=== PATIENT | female | born 1990 ===

== ENCOUNTER 2018-05-02 23:59 | Emergency (ER) | payer MEDICAID ==
[2018-05-03 00:03] VITALS: BMI 18.8
[2018-05-03 00:05] VITALS: RESP 19; TEMP 98.7; O2SAT 97
[2018-05-03] MEDS ORDERED: POLYETHYLENE GLYCOL 3350 17 GM/Dose PACKET PO STA (00:45)
--- NOTE | 2018-05-03 00:50 | ED PDOC ---
HPI: Abdomen Chief Complaint (Provider): Lower abdominal pain History Per: Patient History/Exam Limitations: no limitations Onset/Duration Of Symptoms: Days Outside of [place] travel?: No Current Symptoms Are (Timing): Still Present Location Of Pain/Discomfort: Suprapubic, Other (Lower abdominal pain. ) Quality Of Discomfort: Other ("sensitive") Associated Symptoms: Constipation. denies: Fever, Chills, Nausea, Vomiting, Diarrhea, Chest Pain, Urinary Symptoms Last Bowel Movement: Days Ago (Reported Thursday04/30/18 - described as hard, small vamshi.) Additional History Per: Patient Abnormal Vaginal Bleeding: No Last Menstral Period: February 2018 (patient unable to recall) : 2 Para: 1 Miscarriage: 1 <Yesica Lopez - Last Filed: 05/04/18 16:42> <Kvng Mascorro - Last Filed: 05/04/18 23:38> Time Seen by Provider: 05/03/18 00:33 Chief Complaint (Nursing): GI Problem Additional Complaint(s): 27 yo f without pertinent medical history presents to E.D with abdominal pain. She states it began yesterday afternoon and states it is located in the lower abdomen and describes the pain as more of a "sensitive area" rating the intensity as a 0/10. She states her last BM was yesterday and it was hard and was only a few small vamshi. Patient reports that when she wiped, she noted spots of bright red blood on the toilet paper. She states that she visited the E.D a few weeks ago for the same complaint and was prescribed Miralax which helped her feel better. She has not taken Miralax since then because she reports she has not had time to take it and felt better coming into the E.D. today to seek treatment. Denies fever, nausea, vomiting, diarrhea, back pain, dysuria, frequency, and urgency. PCP: Dr. Carmelita Turk ([facility]) (Yesica Lopez) Supervising Attending Note <Yesica Lopez - Last Filed: 05/04/18 16:42> - Supervising Attending Note The Documented history was done by the: Physician Pulmonary Function Technologist The documented physical exam was done by the: Physician Pulmonary Function Technologist - Attestation: I have personally seen and examined this patient.: Yes I have fully participated in the care of the patient.: Yes I have reviewed all pertinent clinical information: Yes <Kvng Mascorro - Last Filed: 05/04/18 23:38> - Notes: Notes:: 27 yo female with known constipation by history, c/o same Patient evaluated by supervising attending MD CHEEMA, afebrile Abdomen soft NT, ND with NBS Patient agreeable to taking Miralax and requests discharge home without having BM prior to discharge Case d/w resident MD Dr Iglesias in full Dx Constipation Stable on discharge (Kvng Mascorro) Past Medical History - Medical History PMH: No Chronic Diseases Denies: Kidney Stones - Surgical History Surgical History: (2008 because of nuchal cord. ) - Family History Family History: States: Unknown Family Hx, Diabetes (Grandmother ) - Social History Current smoker - smoking cessation education provided: No Alcohol: None Drugs: Denies - Immunization History Hx Tetanus Toxoid Vaccination: No Hx Influenza Vaccination: Yes (05/2015) Hx Pneumococcal Vaccination: No <Yesica Lopez - Last Filed: 05/04/18 16:42> <Kvng Mascorro - Last Filed: 05/04/18 23:38> Vital Signs: Last Vital Signs Temp 98.7 F 05/03/18 00:16 Pulse 70 05/03/18 01:34 Resp 19 05/03/18 00:04 BP 104/70 05/03/18 01:34 Pulse Ox 97 05/04/18 16:42 - Home Medications Home Medications: Ambulatory Orders Medication Instructions Recorded Ciprofloxacin [Cipro] 500 mg PO BID #14 tab 03/13/17 Cyclobenzaprine HCl 10 mg PO HS PRN 03/13/17 Naproxen [Naprosyn] 500 mg PO BID PRN 03/13/17 Polyethylene Glycol 3350 [Miralax] 17 g PO QAM PRN #7 pkg 05/03/18 - Allergies Allergies/Adverse Reactions: Allergies Allergy/AdvReac Type Severity Reaction Status Date / Time Penicillins Allergy RASH Verified 04/08/18 23:33 shellfish derived Allergy ANAPHYLAXIS Verified 04/08/18 23:33 Review of Systems ROS Statement: Except As Marked, All Systems Reviewed And Found Negative <Yesica Lopez - Last Filed: 05/04/18 16:42> Physical Exam - Reviewed Vital Signs Reviewed: Yes - Physical Exam Appears: Positive for: Well, Non-toxic, No Acute Distress Head Exam: Positive for: NORMAL INSPECTION Skin: Positive for: Normal Color, Warm, Dry Eye Exam: Positive for: Normal appearance Cardiovascular/Chest: Positive for: Regular Rate, Rhythm. Negative for: Gallop , Murmur, Friction Rub Respiratory: Positive for: Normal Breath Sounds. Negative for: Crackles, Rales , Rhonchi, Stridor, Wheezing Gastrointestinal/Abdominal: Positive for: Normal Exam, Bowel Sounds ( Normoactive bowel sounds), Soft. Negative for: Tenderness, Organomegaly, Distended, Guarding, Rebound Back: Negative for: L CVA Tenderness, R CVA Tenderness Neurologic/Psych: Positive for: Alert, Oriented <Yesica Lopez - Last Filed: 05/04/18 16:42> - ECG O2 Sat by Pulse Oximetry: 97 <Yesica Lopez - Last Filed: 05/04/18 16:42> <Kvng Mascorro - Last Filed: 05/04/18 23:38> - Progress ED Course And Treament: 1:00 Lower abdominal pain: - Urinary test ordered - Urinalysis 1:28 Lower abdominal pain: - Miralax was given. - Abdominal exam remains unchanged. - Patient reports she feels comfortable going home as she has received first dose of miralax and is confident she will have a bowel movement at home. - Prescription of Miralax given to the patient. (Yescia Lopez) Disposition - Disposition Disposition Time: 01:05 <Yesica Lopez - Last Filed: 05/04/18 16:42> <Kvng Mascorro - Last Filed: 05/04/18 23:38> - Clinical Impression Clinical Impression: Constipation - Disposition Condition: STABLE Prescriptions: Polyethylene Glycol 3350 [Miralax] 17 g PO QAM PRN #7 pkg PRN Reason: Constipation Instructions: Constipation in Adults Forms: [employer] ([place])
[2018-05-03 01:40] VITALS: BP 104/70; PULSE 70
[2018-05-03 01:48] LABS: SQUAMOUS EPITHIAL 24 /hpf (0-5); URINE BACTERIA RARE (<OCC); URINE BILIRUBIN NEGATIVE (NEGATIVE); URINE BLOOD NEGATIVE (NEGATIVE); URINE CLARITY CLOUDY (Clear); URINE COLOR YELLOW (YELLOW); URINE GLUCOSE (UA) NEG (Normal); URINE LEUKOCYTE ESTERASE TRACE Leu/uL (Negative); URINE PROTEIN 30 mg/dL (NEGATIVE)
== END 2018-05-03 01:35 | disposition home or self-care (01) ==
LOC: MERGE 23:59 → H.ER 23:59
DX: K59.00 Constipation, unspecified (principal)

== ENCOUNTER 2018-06-04 13:10 | Emergency (ER) | payer MEDICAID ==
[2018-06-04 13:10] VITALS: BMI 18.8
[2018-06-04 13:15] VITALS: BP 95/67; PULSE 75; RESP 18; TEMP 98.1; O2SAT 99
[2018-06-04] MEDS ORDERED: Metoclopramide 10 mg/10 ml Cup PO STA (13:42)
--- NOTE | 2018-06-04 14:03 | ED PDOC ---
HPI: Headache Time Seen by Provider: 06/04/18 13:18 Chief Complaint (Nursing): Headache Chief Complaint (Provider): Headache History Per: Patient History/Exam Limitations: no limitations Onset/Duration Of Symptoms: Other (x6 months) Current Symptoms Are (Timing): Still Present Additional Complaint(s): 27-year-old female presenting for evaluation of headache x6 months. Patient states she's had an intermittent headache for the past 6 months, worse today. PT reports dull throbbing on the left side. PT states she has had similar in the past but the last 6 months they have increased in frequency. Pt took Excedrin last night which helped the pain. Pt states she woke up again with headache. Past Medical History Reviewed: Historical Data, Nursing Documentation, Vital Signs Vital Signs: Last Vital Signs Temp 98.1 F 06/04/18 13:13 Pulse 75 06/04/18 13:13 Resp 18 06/04/18 13:13 BP 95/67 L 06/04/18 13:13 Pulse Ox 99 06/04/18 13:13 - Medical History PMH: No Chronic Diseases Denies: Kidney Stones, Chronic Kidney Disease - Surgical History Surgical History: (2009 because of nuchal cord. ) - Family History Family History: States: Unknown Family Hx, Diabetes (Grandmother ) - Immunization History Hx Tetanus Toxoid Vaccination: No Hx Influenza Vaccination: Yes (05/2015) Hx Pneumococcal Vaccination: No - Home Medications Home Medications: Ambulatory Orders Medication Instructions Recorded Ciprofloxacin [Cipro] 500 mg PO BID #14 tab 03/13/17 Cyclobenzaprine HCl 10 mg PO HS PRN 03/13/17 Naproxen [Naprosyn] 500 mg PO BID PRN 03/13/17 Polyethylene Glycol 3350 [Miralax] 17 g PO QAM PRN #7 pkg 05/03/18 - Allergies Allergies/Adverse Reactions: Allergies Allergy/AdvReac Type Severity Reaction Status Date / Time Penicillins Allergy RASH Verified 04/08/18 23:33 shellfish derived Allergy ANAPHYLAXIS Verified 04/08/18 23:33 Review of Systems ROS Statement: Except As Marked, All Systems Reviewed And Found Negative Neurological: Positive for: Headache Physical Exam - Reviewed Nursing Documentation Reviewed: Yes Vital Signs Reviewed: Yes - Physical Exam Appears: Positive for: Non-toxic, No Acute Distress Head Exam: Positive for: ATRAUMATIC Skin: Positive for: Normal Color, Warm Eye Exam: Positive for: Normal appearance, EOMI, PERRL ENT: Negative for: Normal ENT Inspection Neck: Positive for: Normal Cardiovascular/Chest: Negative for: Bradycardia, Tachycardia Respiratory: Negative for: Accessory Muscle Use, Respiratory Distress Neurologic/Psych: Positive for: Alert, office services clerk II-XII, Oriented, Mood/Affect, Cerebellar Tests, Gait. Negative for: Motor/Sensory Deficits, Aphasia, Facial Droop - ECG O2 Sat by Pulse Oximetry: 99 (RA) Pulse Ox Interpretation: Normal Medical Decision Making Medical Decision Making: Plan: Positive . CT cancelled and patient given Tylenol and Reglan. Discussed follow up with patient. Scribe Attestation: Documented by Zion Fall, acting as a scribe for Lilia Thompson PA-C. Provider Scribe Attestation: All medical record entries made by the scribe were at my direction and personally dictated by me. I have reviewed the chart and agree that the record accurately reflects my personal performance of the history, physical exam, medical decision making, and the department course for this patient. I have also personally directed, reviewed, and agree with the discharge instructions and disposition. Disposition - Clinical Impression Clinical Impression: Headache - Patient ED Disposition Is Patient to be Admitted: No Counseled Patient/Family Regarding: Diagnosis, Need For Followup - Disposition Referrals: Nathan Rachel MD [Staff Provider] - Disposition: Routine/Home Disposition Time: 14:19 Condition: GOOD Additional Instructions: Please begin vitamins. Tylenol only for headache. Follow-up with neurologist. Instructions: Migraine Headache (DC) Forms: [email or web address] ([place] Citizen)
== END 2018-06-04 14:22 | disposition home or self-care (01) ==
LOC: H.ER 13:10
DX: R51 Headache (principal); Z88.0 Allergy status to penicillin

== ENCOUNTER 2018-06-06 22:31 | Emergency (ER) | payer MEDICAID ==
[2018-06-06 22:31] VITALS: BMI 18.8
[2018-06-06 22:57] VITALS: O2SAT 100
--- NOTE | 2018-06-06 23:47 | ED PDOC ---
HPI: Abdomen Chief Complaint (Provider): Abdominal and Chest pain History Per: Patient History/Exam Limitations: no limitations Onset/Duration Of Symptoms: Hrs Current Symptoms Are (Timing): Intermittent Episodes Pain Scale Rating Of: 2 Location Of Pain/Discomfort: LLQ Quality Of Discomfort: Other (Vibration) Associated Symptoms: Chest Pain. denies: Nausea, Vomiting Abnormal Vaginal Bleeding: No Last Menstral Period: 05/05/2018 : 4 Para: 1 Miscarriage: 2 <Obed Smith - Last Filed: 06/07/18 03:05> <Jose G Otero - Last Filed: 06/07/18 05:27> Chief Complaint (Nursing): Abdominal Pain Additional Complaint(s): 27 yo F with pmhx of asthma and anemia presents to the ED with LLQ abdominal and chest pain. She reports that this AM at 11:00, approximately 12 hours prior, she was resting when suddenly she experienced a "vibrational" like pain at LLQ lasting 1-2 seconds, which returned at 14:00 and 20:00. She denies recent trauma. She reports being diagnosed with at her recent visit on 06/04/2018 with generalized abdominal pain. She denies vaginal bleed or discomfort, dysuria. Denies history of STI or ectopic pregnancies. History of 2 miscarriages. Denies N/V/D/SOB. She reported chest pain while preregistering for ED. Pain is L sternal, sharp, 3 /10 lasting a second. Aggravated with deep inspiration. She reports history of similar chest pain but said she never told her PMD. LMP: 05/05/2018; regular cycles; no history of ectopic PMD: Dr. Stewart at [facility] PMHX: Asthma, Anemia (both not on meds) surg: c/s 2008 famhx: Cancer: breast, brain, lung, colon; Diabetes Soc: denies smoking, alcohol, illicit drugs; Denies history of STI Allergies: penicillin: hives and shellfish (Obed Smith) Supervising Attending Note - Supervising Attending Note The Documented history was done by the: Physician Share Holder, Attending Physician The documented physical exam was done by the: Physician Share Holder, Attending Physician The documented procedures were done by the: Physician Share Holder, Attending Physician - Attestation: I have personally seen and examined this patient.: Yes I have fully participated in the care of the patient.: Yes I have reviewed all pertinent clinical information: Yes <BrandenJose G - Last Filed: 06/07/18 05:27> Past Medical History - Medical History PMH: Anemia, Asthma Denies: Kidney Stones, Chronic Kidney Disease - Surgical History Surgical History: (2009 because of nuchal cord. ) - Family History Family History: States: Unknown Family Hx, Diabetes (Grandmother ) - Living Arrangements Living Arrangements: Alone - Social History Current smoker - smoking cessation education provided: No Alcohol: None Drugs: Denies - Immunization History Hx Tetanus Toxoid Vaccination: No Hx Influenza Vaccination: Yes (05/2015) Hx Pneumococcal Vaccination: No <Obed Smith - Last Filed: 06/07/18 03:05> Reviewed: Historical Data, Nursing Documentation, Vital Signs <PascualpauletteKuldeepvilma Geeta - Last Filed: 06/07/18 05:27> Vital Signs: Last Vital Signs Temp 98.7 F 06/07/18 03:23 Pulse 68 06/07/18 03:23 Resp 18 06/07/18 03:23 BP 93/64 L 06/07/18 03:23 Pulse Ox 100 06/07/18 03:23 - Home Medications Home Medications: Ambulatory Orders Medication Instructions Recorded Ciprofloxacin [Cipro] 500 mg PO BID #14 tab 03/13/17 Cyclobenzaprine HCl 10 mg PO HS PRN 03/13/17 Naproxen [Naprosyn] 500 mg PO BID PRN 03/13/17 Polyethylene Glycol 3350 [Miralax] 17 g PO QAM PRN #7 pkg 05/03/18 - Allergies Allergies/Adverse Reactions: Allergies Allergy/AdvReac Type Severity Reaction Status Date / Time Penicillins Allergy RASH Verified 04/08/18 23:33 shellfish derived Allergy ANAPHYLAXIS Verified 04/08/18 23:33 Review of Systems Constitutional: Negative for: Fever, Sweats Cardiovascular: Positive for: Chest Pain (Intermittent substernal lasting 1 second; worse with inspiration) Respiratory: Negative for: Cough, Shortness of Breath Gastrointestinal: Positive for: Abdominal Pain (LLQ). Negative for: Nausea, Vomiting Genitourinary Female: Negative for: Dysuria, Frequency, Vaginal Discharge, Vaginal Bleeding, Pelvic Pain <Obed Smith - Last Filed: 06/07/18 03:05> ROS Statement: Except As Marked, All Systems Reviewed And Found Negative <BrandenMinoomilton Geeta Last Filed: 06/07/18 05:27> Physical Exam - Reviewed Vital Signs Reviewed: Yes - Physical Exam Appears: Positive for: Well, Non-toxic, No Acute Distress Head Exam: Positive for: ATRAUMATIC Skin: Positive for: Normal Color, Warm, Dry Eye Exam: Positive for: EOMI Neck: Positive for: Painless ROM Cardiovascular/Chest: Positive for: Regular Rate, Rhythm, Other (L sternal tenderness upon palpation ). Negative for: Murmur Respiratory: Positive for: Normal Breath Sounds. Negative for: Wheezing Gastrointestinal/Abdominal: Positive for: Bowel Sounds, Tenderness (L lower quadrant with deep palpation). Negative for: Distended, Guarding, Rebound, Asicites Neurologic/Psych: Positive for: Alert, nurse anesthetist II-XII, Oriented Front/Back of Body: 1 - Tenderness; vibrational pain <Obed Smith Last Filed: 06/07/18 03:05> - ECG O2 Sat by Pulse Oximetry: 100 - CT Scan/US TRANSVAGINAL Other Rad Studies (CT/US): Read By Radiologist, Radiology Report Reviewed <Obed Smith Last Filed: 06/07/18 03:05> <Jose G Otero Last Filed: 06/07/18 05:27> - Progress ED Course And Treament: 27 yo F with pmhx of asthma and anemia presents with LLQ and chest pain Chest Pain -EKG -Troponin LLQ pain -Urine : if positive: quantitative bhcg and LLQ abdominal ultrasound -UA 01:02 EKG, Troponin, UA, bhcg reviewed Pending Abdo ultrasound to r/o ectopic 03:06 TV US reviewed: 1) no viable intrauterine 2)no visible ectopic 3) there is a simple cyst of the L ovary measuring a maximum of 3.1 cm Discussed with patient options for: early IUP, early ectopic, or missed/ complete Pt instructed to f/u with PMD or ER in 3 days to f/u BHCG levels; continue vitamins and seek OB care. ER precautions reviewed: abdo pain, vaginal bleed, vomiting, fever, trauma. Case dw Dr. Branden Smith MD PGY2 (Obed Smith) Disposition - Patient ED Disposition Is Patient to be Admitted: No - Disposition Disposition: Routine/Home Disposition Time: 03:09 <Obed Smith - Last Filed: 06/07/18 03:05> Counseled Patient/Family Regarding: Studies Performed, Diagnosis, Need For Followup <Jose G Otero - Last Filed: 06/07/18 05:27> - Clinical Impression Clinical Impression: Threatened , Abdominal pain in female - Disposition Referrals: Carmelita Marrufo APN [Primary Care Provider] - Condition: GOOD Additional Instructions: Discussed with patient options for: early IUP, early ectopic, or missed/ complete Pt instructed to f/u with PMD or ER in 3 days to f/u BHCG levels; continue vitamins and seek OB care. ER precautions reviewed: abdo pain, vaginal bleed, vomiting, fever, trauma. Instructions: Threatened Miscarriage (DC)
[2018-06-07 00:53] LABS: SQUAMOUS EPITHIAL 15 /hpf (0-5); URINE BILIRUBIN NEGATIVE (NEGATIVE); URINE BLOOD NEGATIVE (NEGATIVE); URINE CLARITY CLOUDY (Clear); URINE COLOR YELLOW (YELLOW); URINE GLUCOSE (UA) NEG (Normal); URINE LEUKOCYTE ESTERASE NEG Leu/uL (Negative); URINE PROTEIN NEGATIVE (NEGATIVE); URINE UROBILINOGEN 0.2-1.0 mg/dL (0.2-1.0)
[2018-06-07 03:26] VITALS: BP 93/64; PULSE 68; RESP 18; TEMP 98.7
--- NOTE | 2018-06-07 08:23 | CARD ---
APPROVED REPORT Date of service: 06/07/2018 EKG Measurement Heart [id number] <Conclusion> Normal sinus rhythm Normal ECG
--- NOTE | 2018-06-07 14:52 | US ---
Date of service: 06/07/2018 PROCEDURE: OB Pelvic Ultrasound HISTORY: LLQ abdominal pain LMP: 05/05/2018 suggesting estimated gestational age of 4 weeks 5 days. COMPARISON: None available. FINDINGS: UTERUS: Gestational sac: None identified. Endometrium measures 14.0 mm and appears homogeneous in echotexture throughout. No definite myometrial lesion is appreciated with homogeneous echotexture appreciated throughout. The cervix measures 3.2 cm with a closed internal os. Uterus measures 6.9 x 4.0 x 5.3 cm. Normal in size and appearance, anteverted. CERVIX: As above. RIGHT OVARY: Measures 2.1 x 1.4 x 2.0 cm. No mass lesion. Normal flow. LEFT OVARY: Measures 3.8 x 1.2 x 4.1 cm. No solid mass. Normal flow. 3.1 x 2.1 x 2.9 cm anechoic cyst is identified at the left ovary. No yolk sac or pole is identified internally nor amniotic membrane. It may represent a dominant follicle although corpus luteum cyst is not completely excluded. FREE FLUID: None. OTHER FINDINGS: None. IMPRESSION: 1. No intrauterine gestation is identified at this time and there may be a nonvisualized early intrauterine given prior LMP suggesting 4 week 5 day EGA. An ectopic gestation is not identified but is not completely excluded nevertheless. Further clinical correlation and sonographic follow-up is advised. At the time of imaging, beta HCG analysis was not available. 2. 3.1 cm anechoic cyst left ovary potentially reflecting corpus luteum cyst, follicular cyst or other benign entity. No pole is identified or yolk sac to suggest ectopic gestation although ectopic gestation not excluded. Additional differential diagnosis which consists of failure of gestation. Concordant preliminary report from [facility], 06/07/2018.
== END 2018-06-07 03:30 | disposition home or self-care (01) ==
LOC: H.ER 22:31
DX: O20.0 Threatened abortion (principal); R10.2 Pelvic and perineal pain; E11.9 Type 2 diabetes mellitus without complications; J45.909 Unspecified asthma, uncomplicated; Z85.3 Personal history of malignant neoplasm of breast; Z88.0 Allergy status to penicillin

== ENCOUNTER 2018-06-09 13:07 | Emergency (ER) | payer MEDICAID ==
[2018-06-09 13:08] VITALS: BMI 18.8
[2018-06-09 13:24] VITALS: BP 99/62; PULSE 74; RESP 20; TEMP 98; O2SAT 99
--- NOTE | 2018-06-09 14:42 | ED PDOC ---
HPI: Abdomen Time Seen by Provider: 06/09/18 13:31 Chief Complaint (Nursing): Abdominal Pain Chief Complaint (Provider): Abdominal Pain and Follow-Up History Per: Patient History/Exam Limitations: no limitations Onset/Duration Of Symptoms: Days Current Symptoms Are (Timing): Still Present Location Of Pain/Discomfort: Suprapubic Quality Of Discomfort: "Pain" Associated Symptoms: denies: Fever Additional Complaint(s): 27 year old female presents to the ED for a follow-up visit regarding her . Patient was seen in the ED 2 days ago for abdominal pain and early . She had an US done that showed no IUP and was told to return to the ED for a follow-up. Her last normal menstrual period was in mid-April and patient is 3-4 weeks . Patient is complaining of suprapubic abdominal pain now. She was scheduled to visit the management developer but patient states, she did not go because they do not take her insurance. Patient denies fever, vaginal bleeding or any other complaints. Of note: Patient is G3, P1, A1 PMD: [place] Abnormal Vaginal Bleeding: No Last Menstral Period: mid April : 3 Para: 1 Past Medical History Reviewed: Historical Data, Nursing Documentation, Vital Signs Vital Signs: Last Vital Signs Temp 98.0 F 06/09/18 13:18 Pulse 74 06/09/18 13:18 Resp 20 06/09/18 13:18 BP 99/62 L 06/09/18 13:18 Pulse Ox 99 06/09/18 17:00 - Medical History PMH: Anemia, Asthma Denies: Kidney Stones, Chronic Kidney Disease - Surgical History Surgical History: (2008 because of nuchal cord. ) - Family History Family History: States: Unknown Family Hx, Diabetes (Grandmother ) - Social History Current smoker - smoking cessation education provided: No Alcohol: None Drugs: Denies - Immunization History Hx Tetanus Toxoid Vaccination: No Hx Influenza Vaccination: Yes (05/2015) Hx Pneumococcal Vaccination: No - Home Medications Home Medications: Ambulatory Orders Medication Instructions Recorded Ciprofloxacin [Cipro] 500 mg PO BID #14 tab 03/13/17 Cyclobenzaprine HCl 10 mg PO HS PRN 03/13/17 Naproxen [Naprosyn] 500 mg PO BID PRN 03/13/17 Polyethylene Glycol 3350 [Miralax] 17 g PO QAM PRN #7 pkg 05/03/18 - Allergies Allergies/Adverse Reactions: Allergies Allergy/AdvReac Type Severity Reaction Status Date / Time Penicillins Allergy RASH Verified 06/09/18 13:17 shellfish derived Allergy ANAPHYLAXIS Verified 06/09/18 13:17 Review of Systems ROS Statement: Except As Marked, All Systems Reviewed And Found Negative Constitutional: Negative for: Fever Gastrointestinal: Positive for: Abdominal Pain. Negative for: Nausea, Vomiting , Diarrhea Genitourinary Female: Negative for: Dysuria, Frequency, Incontinence, Vaginal Discharge, Vaginal Bleeding Psych: Negative for: Suicidal ideation (homicidal ideation) Physical Exam - Reviewed Nursing Documentation Reviewed: Yes Vital Signs Reviewed: Yes - Physical Exam Appears: Positive for: Well, Non-toxic, No Acute Distress Head Exam: Positive for: ATRAUMATIC, NORMAL INSPECTION, NORMOCEPHALIC Skin: Positive for: Normal Color, Warm, Dry Eye Exam: Positive for: EOMI, Normal appearance, PERRL ENT: Positive for: Normal ENT Inspection Neck: Positive for: Normal, Painless ROM, Supple. Negative for: Decreased ROM Cardiovascular/Chest: Positive for: Regular Rate, Rhythm. Negative for: Murmur Respiratory: Positive for: Normal Breath Sounds. Negative for: Decreased Breath Sounds, Wheezing, Respiratory Distress Gastrointestinal/Abdominal: Positive for: Normal Exam, Bowel Sounds, Soft. Negative for: Tenderness, Guarding, Rebound Back: Positive for: Normal Inspection. Negative for: L CVA Tenderness, R CVA Tenderness Extremity: Positive for: Normal ROM. Negative for: Tenderness, Pedal Edema, Deformity Neurologic/Psych: Positive for: Alert, Oriented (x3). Negative for: Motor/ Sensory Deficits - ECG O2 Sat by Pulse Oximetry: 99 (RA) Pulse Ox Interpretation: Normal Medical Decision Making Medical Decision Making: Time: 1415 Initial Impression: abdominal pain and Differential Diagnosis includes but is not limited to: ectopic , early gestation and miscarriage Initial Plan: -- Serum [Beta-HCG, Quantitative] --Reevaluation Time: 1451 Date of service: 06/07/2018 PROCEDURE: OB Pelvic Ultrasound HISTORY: LLQ abdominal pain LMP: 05/05/2018 suggesting estimated gestational age of 4 weeks 5 days. COMPARISON: None available. FINDINGS: UTERUS: Gestational sac: None identified. Endometrium measures 14.0 mm and appears homogeneous in echotexture throughout. No definite myometrial lesion is appreciated with homogeneous echotexture appreciated throughout. The cervix measures 3.2 cm with a closed internal os. Uterus measures 6.9 x 4.0 x 5.3 cm. Normal in size and appearance, anteverted. CERVIX: As above. RIGHT OVARY: Measures 2.1 x 1.4 x 2.0 cm. No mass lesion. Normal flow. LEFT OVARY: Measures 3.8 x 1.2 x 4.1 cm. No solid mass. Normal flow. 3.1 x 2.1 x 2.9 cm anechoic cyst is identified at the left ovary. No yolk sac or pole is identified internally nor amniotic membrane. It may represent a dominant follicle although corpus luteum cyst is not completely excluded. FREE FLUID: None. OTHER FINDINGS: None. IMPRESSION: 1. No intrauterine gestation is identified at this time and there may be a nonvisualized early intrauterine given prior LMP suggesting 4 week 5 day EGA. An ectopic gestation is not identified but is not completely excluded nevertheless. Further clinical correlation and sonographic follow-up is advised. At the time of imaging, beta HCG analysis was not available. 2. 3.1 cm anechoic cyst left ovary potentially reflecting corpus luteum cyst, follicular cyst or other benign entity. No pole is identified or yolk sac to suggest ectopic gestation although ectopic gestation not excluded. Additional differential diagnosis which consists of failure of gestation. Time: 1544 Date of service: 06/09/2018 HISTORY: lower abdominal pain preg COMPARISON: None available. TECHNIQUE: Transvaginal pelvic ultrasound was performed. FINDINGS: UTERUS: Measures 7.8 x 4.2 x 5.4 cm. Anteverted, normal in size and appearance. No fibroid or other mass lesion seen. ENDOMETRIUM: The central endometrial echo complex is taken. There is an apparent 2 mm anechoic structure in the superior endometrium. Yolk sac and pole are not identified. CERVIX: No cervical abnormality identified. RIGHT OVARY: Measures 2.6 x 1.4 x 2.3 cm. No solid mass. Normal flow. LEFT OVARY: Measures 3.7 x 2.5 x 3.5 cm. No solid mass. Normal flow. There is a 3.1 x 1.4 x 2.6 cm simple cyst. FREE FLUID: No significant free fluid noted. OTHER FINDINGS: None. IMPRESSION: Small anechoic structure in the endometrial cavity which may represent small gestational sac an early gestation. Yolk sac or pole are not identified. Clinical follow-up, correlation with serial beta HCG levels and ultrasound examination is recommended to assess viability. Scribe Attestation: Documented by Chris Limon, acting as a scribe for Jose G Otero MD Provider Scribe Attestation: All medical record entries made by the Scribe were at my direction and personally dictated by me. I have reviewed the chart and agree that the record accurately reflects my personal performance of the history, physical exam, medical decision making, and the department course for this patient. I have also personally directed, reviewed, and agree with the discharge instructions and disposition. Disposition - Clinical Impression Clinical Impression: Threatened - Patient ED Disposition Is Patient to be Admitted: No Doctor Will See Patient In The: Office Counseled Patient/Family Regarding: Studies Performed, Diagnosis, Need For Followup - Disposition Referrals: [facility] [Outside] Disposition: Routine/Home Disposition Time: 16:00 Condition: GOOD Additional Instructions: Return to ED for recheck in 2-3 days. Return immediately with worsening pain or vaginal bleeding. SHELLEY PRASAD, thank you for letting us take care of you today. Your provider was Jose G Otero MD and you were treated for ABD PAIN. The emergency medical care you received today was directed at your acute symptoms. If you were prescribed any medication, please fill it and take as directed. It may take several days for your symptoms to resolve. Return to the Emergency Department if your symptoms worsen, do not improve, or if you have any other problems. Please contact your doctor or call one of the physicians/clinics you have been referred to that are listed on the Patient Visit Information form that is included in your discharge packet. Bring any paperwork you were given at discharge with you along with any medications you are taking to your follow up visit. Our treatment cannot replace ongoing medical care by a primary care provider outside of the emergency department. Thank you for allowing the [facility] team to be part of your care today. If you had an X-Ray or CT scan: A Radiologist will review the ED reading if any change in treatment is needed we will contact you. If you had a blood, urine, or wound culture: It will take several days for the results, if any change in treatment is needed we will contact you. If you had an STI test: It will take 48 hours for the results. Please call after 1 week if you have not heard back. Instructions: Threatened Miscarriage
--- NOTE | 2018-06-09 15:47 | US ---
Date of service: 06/09/2018 HISTORY: lower abdominal pain preg COMPARISON: None available. TECHNIQUE: Transvaginal pelvic ultrasound was performed. FINDINGS: UTERUS: Measures 7.8 x 4.2 x 5.4 cm. Anteverted, normal in size and appearance. No fibroid or other mass lesion seen. ENDOMETRIUM: The central endometrial echo complex is taken. There is an apparent 2 mm anechoic structure in the superior endometrium. Yolk sac and pole are not identified. CERVIX: No cervical abnormality identified. RIGHT OVARY: Measures 2.6 x 1.4 x 2.3 cm. No solid mass. Normal flow. LEFT OVARY: Measures 3.7 x 2.5 x 3.5 cm. No solid mass. Normal flow. There is a 3.1 x 1.4 x 2.6 cm simple cyst. FREE FLUID: No significant free fluid noted. OTHER FINDINGS: None. IMPRESSION: Small anechoic structure in the endometrial cavity which may represent small gestational sac an early gestation. Yolk sac or pole are not identified. Clinical follow-up, correlation with serial beta HCG levels and ultrasound examination is recommended to assess viability.
== END 2018-06-09 18:45 | disposition home or self-care (01) ==
LOC: H.ER 13:07
DX: O26.91 Pregnancy related conditions, unspecified, first trimester (principal); R10.2 Pelvic and perineal pain; J45.909 Unspecified asthma, uncomplicated; O20.0 Threatened abortion; Z88.0 Allergy status to penicillin; Z3A.01 Less than 8 weeks gestation of pregnancy

== ENCOUNTER 2018-06-16 13:05 | Emergency (ER) | payer MEDICAID ==
[2018-06-16 13:05] VITALS: BMI 18.8
[2018-06-16 13:16] VITALS: BP 97/62; PULSE 78; RESP 18; TEMP 98.4; O2SAT 100
[2018-06-16] MEDS ORDERED: Sodium Chloride 0.9% 1,000 ML IV STA (13:36)
--- NOTE | 2018-06-16 13:38 | ED PDOC ---
Syncope/Near Syncope/Dizziness Time Seen by Provider: 06/16/18 13:36 Chief Complaint (Nursing): Dizziness/Lightheaded Chief Complaint (Provider): nausea/ weakness/lower abd pain History Per: Patient (27 y/o female here with nausea/weakness/lower abd pain ongoing here for f/u regarding betahcg/us pelvic. Patient was seen in ED 06/07 and 06/09 and noted to have ?intrauterine gestation and ?ovarian cyst with beta hcg 1999. Denies any vaginal bleeding.) Past Medical History Reviewed: Historical Data, Nursing Documentation, Vital Signs Vital Signs: Last Vital Signs Temp 98.4 F 06/16/18 13:13 Pulse 78 06/16/18 13:13 Resp 18 06/16/18 13:13 BP 97/62 L 06/16/18 13:13 Pulse Ox 100 06/16/18 13:13 - Medical History PMH: Anemia, Asthma Denies: Kidney Stones, Chronic Kidney Disease - Surgical History Surgical History: (2008 because of nuchal cord. ) - Family History Family History: States: Unknown Family Hx, Diabetes (Grandmother ) - Immunization History Hx Tetanus Toxoid Vaccination: No Hx Influenza Vaccination: Yes (05/2015) Hx Pneumococcal Vaccination: No - Home Medications Home Medications: Ambulatory Orders Medication Instructions Recorded Ciprofloxacin [Cipro] 500 mg PO BID #14 tab 03/13/17 Cyclobenzaprine HCl 10 mg PO HS PRN 03/13/17 Naproxen [Naprosyn] 500 mg PO BID PRN 03/13/17 Polyethylene Glycol 3350 [Miralax] 17 g PO QAM PRN #7 pkg 05/03/18 - Allergies Allergies/Adverse Reactions: Allergies Allergy/AdvReac Type Severity Reaction Status Date / Time Penicillins Allergy RASH Verified 06/16/18 13:12 shellfish derived Allergy ANAPHYLAXIS Verified 06/16/18 13:12 Review of Systems ROS Statement: Except As Marked, All Systems Reviewed And Found Negative Physical Exam - Reviewed Nursing Documentation Reviewed: Yes Vital Signs Reviewed: Yes - Physical Exam Appears: Positive for: Well, Non-toxic, No Acute Distress Head Exam: Positive for: ATRAUMATIC, NORMAL INSPECTION, NORMOCEPHALIC Skin: Positive for: Normal Color, Warm, DRY Eye Exam: Positive for: EOMI, Normal appearance, PERRL ENT: Positive for: Normal ENT Inspection Neck: Positive for: Normal, Painless ROM Cardiovascular/Chest: Positive for: Regular Rate, Rhythm Respiratory: Positive for: CNT, Normal Breath Sounds Gastrointestinal/Abdominal: Positive for: Normal Exam, Soft Back: Positive for: Normal Inspection Extremity: Positive for: Normal ROM Neurologic/Psych: Positive for: Alert, Oriented - Laboratory Results Result Diagrams: 06/16/18 14:03 06/16/18 14:03 - ECG O2 Sat by Pulse Oximetry: 100 - Progress ED Course And Treament: zofran 4 mg iv x 1 dose ns 1 liter wide open IMPRESSION: Since the prior exam, an interval yolk sac and embryonic pole are now seen. However no embryonic cardiac activity was identified a failed - of the ultrasound estimate 6 weeks 0 days is 1 consideration. In an abundance of caution, consider follow-up serial beta HCG level and follow-up transvaginal pelvic ultrasound in 7 to 10 days. No ectopic noted. Disposition - Clinical Impression Clinical Impression: Threatened miscarriage - Patient ED Disposition Is Patient to be Admitted: No - Disposition [facility] Disposition: Routine/Home Disposition Time: 17:11 Condition: FAIR Instructions: Threatened Miscarriage
[2018-06-16 14:18] LABS: BASO % 0.3 % (0.0-2.0); EOS % 0.5 % (0.0-4.0); HEMOGLOBIN 12.8 g/dL (12.0-16.0); LYMPH # 1.7 K/uL (1.0-4.3); LYMPH % 20.5 % (20.0-40.0); MEAN CELL VOLUME 89.8 fl (81.0-99.0); MEAN CORPUSCULAR HEMOGLOBIN 31.2 pg (27.0-31.0); MEAN CORPUSCULAR HGB CONC 34.8 g/dL (33.0-37.0); MEAN PLATELET VOLUME 8.7 fl (7.2-11.7); MONO # 0.5 K/uL (0.0-0.8); MONO % 5.7 % (0.0-10.0); NEUT # 5.9 K/uL (1.8-7.0); NRBC % 0.1 % (0.0-0.0); RBC 4.1 Mil/uL (3.80-5.20); RED CELL DISTRIBUTION WIDTH 12.9 % (11.5-14.5); WHITE BLOOD COUNT 8.1 K/uL (4.8-10.8)
[2018-06-16 14:22] LABS: BLOOD UREA NITROGEN 8 mg/dl (7-17); CALCIUM 9.8 mg/dL (8.4-10.2); GFR NON-AFRICAN AMERICAN > 60
--- NOTE | 2018-06-16 17:05 | US ---
Date of service: 06/16/2018 HISTORY: threatened miscarrieage; r/o ectopic LMP 05/05/2018-an estimated gestational age by LMP of 6 weeks 0 days is COMPARISON: 06/09/2018 estimated. TECHNIQUE: Transvaginal FINDINGS: UTERUS: Measures 7.0 x 4.3 x 6.2 cm. Normal in size and appearance. No fibroid or other mass lesion seen. Within the intrauterine cavity there is a gestational sac mean sac diameter 1.3 cm corresponding to 5 weeks 3 days. The shape and position appears normal. On the current study a tiny 2 mm yolk sac is identified. This is not seen as such on the prior study. On the current study a embryonic pole measuring 3 mm is seen this corresponds to a 6 week 0 day. Despite search, no embryonic cardiac activity could be determined at this setting. CERVIX: No cervical abnormality identified. 3.6 cm and closed. RIGHT OVARY: Measures 2.0 x 1.5 x 2.8 cm. No solid mass. Normal flow. LEFT OVARY: Measures 2.8 x 2.2 x 3.6 cm. No solid mass. Normal flow. Two cysts are noted corpus luteal cyst likely 1.2 x 1.3 x 1.4 cm. Another dominant cyst measuring 2.0 x 1.0 x 1.6 cm. FREE FLUID: No significant free fluid noted. OTHER FINDINGS: None. IMPRESSION: Since the prior exam, an interval yolk sac and embryonic pole are now seen. However no embryonic cardiac activity was identified a failed - of the ultrasound estimate 6 weeks 0 days is 1 consideration. In an abundance of caution, consider follow-up serial beta HCG level and follow-up transvaginal pelvic ultrasound in 7 to 10 days. No ectopic noted.
== END 2018-06-16 17:50 | disposition home or self-care (01) ==
LOC: H.ER 13:05
DX: O20.0 Threatened abortion (principal); Z88.0 Allergy status to penicillin
CPT/HCPCS: 76817; 80048; 81025; 83735; 84702; 85025; 86850; 86900; 96361; 96374; 99283; J2405; J7030

== ENCOUNTER 2018-11-29 09:10 | Emergency (ER) | payer SELFPAY ==
[2018-11-29 09:10] VITALS: BMI 18.8
[2018-11-29 09:30] VITALS: RESP 18; TEMP 98.3
[2018-11-29 10:44] LABS: MEAN CELL VOLUME 88.6 fl (81.0-99.0); MEAN CORPUSCULAR HEMOGLOBIN 29.8 pg (27.0-31.0); MEAN CORPUSCULAR HGB CONC 33.6 g/dL (33.0-37.0); RBC 4.37 Mil/uL (3.80-5.20); RED CELL DISTRIBUTION WIDTH 13.8 % (11.5-14.5); WHITE BLOOD COUNT 6.4 K/uL (4.8-10.8)
[2018-11-29 11:16] LABS: BLOOD UREA NITROGEN 16 mg/dl (7-17); CALCIUM 9.6 mg/dL (8.4-10.2); GFR NON-AFRICAN AMERICAN > 60
--- NOTE | 2018-11-29 11:25 | CP.PCM.CON ---
History of Present Illness - History of Present Illness History of Present Illness: Podiatry consult note for Dr. Barron, 28yo female with no Pmhx states last week was stretching in a split of leg, when stretching in split to touch right toes felt sudden pain to posterior calf, now having pain and inability to go onto tip toes associated with tingling to toes. Denies pain to ankle or achilles tendon. Denies any other pedal complains. Admits to a bruise on the anterior proximal aspect of the leg after the injury. Denies f/n/v/sob/cp Pmhx: none Pshx: 9 years ago Allergies: Penicillins Past Patient History - Past Social History Smoking Status: Never Smoked - CARDIAC Hx Cardiac Disorders: No - PULMONARY Hx Asthma: Yes - NEUROLOGICAL Hx Neurological Disorder: No - HEENT Hx HEENT Problems: No - RENAL Hx Chronic Kidney Disease: No Hx Kidney Stones: No - ENDOCRINE/METABOLIC Hx Endocrine Disorders: No - HEMATOLOGICAL/ONCOLOGICAL Hx Anemia: Yes - INTEGUMENTARY Hx Dermatological Problems: No - MUSCULOSKELETAL/RHEUMATOLOGICAL Hx Musculoskeletal Disorders: No - GASTROINTESTINAL Hx Constipation: Yes - GENITOURINARY/GYNECOLOGICAL Hx Genitourinary Disorders: No - PSYCHIATRIC Hx Psychophysiologic Disorder: No Hx Substance Use: No - SURGICAL HISTORY Hx Surgeries: Yes Hx Section: Yes - ANESTHESIA Hx Anesthesia: Yes Hx Anesthesia Reactions: No Meds Home Medications: Home Medication List Medication Instructions Recorded Confirmed Type Ibuprofen [Motrin Tab] 600 mg PO Q6 PRN #15 tab 11/29/18 Rx Allergies/Adverse Reactions: Allergies Allergy/AdvReac Type Severity Reaction Status Date / Time Penicillins Allergy RASH Verified 06/16/18 13:12 shellfish derived Allergy ANAPHYLAXIS Verified 06/16/18 13:12 Physical Exam - Constitutional Appears: Well, Non-toxic, No Acute Distress - Head Exam Head Exam: ATRAUMATIC - Extremities Exam Additional comments: Right lower extremity exam: vascular: DP/PT 2/4, CFT <3 secs x 5, TG warm to warm, no edema noted, no erythema derm: no open lesions, no clinical signs of infection, ecchymosis noted on the anterior proximal aspect of the leg neuro: protective sensation intact ipswich 4/4 ortho: pain with palpation to the medial and alteral heads of gastroc, no pain with palpation to the achilles insertion, no pain with passive ROM of the ankle, pain with active ROM of the ankle - Neurological Exam Neurological exam: Alert, Oriented x3 Results - Vital Signs Recent Vital Signs: Last Vital Signs Temp 98.3 F 11/29/18 09:28 Pulse 84 11/29/18 09:28 Resp 18 11/29/18 09:28 BP 95/66 L 11/29/18 09:28 Pulse Ox 99 11/29/18 09:28 - Labs Result Diagrams: 11/29/18 10:35 11/29/18 10:35 Labs: Laboratory Results - last 24 hr 11/29/18 11/29/18 10:35 10:35 WBC 6.4 RBC 4.37 Hgb 13.0 Hct 38.7 MCV 88.6 MCH 29.8 MCHC 33.6 RDW 13.8 Plt Count 166 Sodium 139 Potassium 4.3 Chloride 101 Carbon Dioxide 25 Anion Gap 17 BUN 16 Creatinine 0.7 Est GFR ( Amer) > 60 Est GFR (Non-Af Amer) > 60 Random Glucose 92 Calcium 9.6 Total Creatine Kinase 63 Assessment & Plan - Assessment and Plan (Free Text) Assessment: 28 yo female seen and evaluated for right leg pain with gastroc muscle strain Plan: Patient seen and evaluated Chart, labs and vitals reviewed Right x-rays reviewed: no acute osseous changes noted MRI of the right tib/fib reviewed; increased intensity at the muscle belly of gastroc medial and lateral heads Patient placed in a well padded posterior splint Patient to be crutch trained by the ED Patient advused to ice and elevate right lower extremity NWB to the RLE Showed verbal understanding Patient to follow up with Dr. Barron within 2 weeks.
--- NOTE | 2018-11-29 11:52 | US ---
Date of service: 11/29/2018 PROCEDURE: Right lower extremity venous duplex Doppler. HISTORY: RLE pain, include calf in study pls COMPARISON: None available. TECHNIQUE: Common femoral, superficial femoral, popliteal and posterior tibial veins were evaluated. Flow was assessed with color Doppler, compressibility, assessment of phasic flow and augmentation response. FINDINGS: COMMON FEMORAL VEIN: Unremarkable. SUPERFICIAL FEMORAL VEIN: Unremarkable. POPLITEAL VEIN: Unremarkable. POSTERIOR TIBIAL VEIN: Unremarkable. OTHER FINDINGS: No sonographic abnormality in the right mid calf at the site of patient's pain. IMPRESSION: No evidence of deep venous thrombosis in the right lower extremity.
--- NOTE | 2018-11-29 12:12 | ED PDOC ---
Lower Extremity Pain/Injury Time Seen by Provider: 11/29/18 10:04 Chief Complaint (Nursing): Lower Extremity Problem/Injury Chief Complaint (Provider): R calf pain and paresthesias toes History Per: Patient History/Exam Limitations: no limitations Onset/Duration Of Symptoms: Days (5-6), Sudden Onset Current Symptoms Are (Timing): Still Present Severity: Moderate Additional Complaint(s): 28yo female states last week was stretching in a split of leg, when stretching in split to touch R toes felt sudden pain to posterior calf, now having pain and inability to go onto tip toes associated with tingling to toes. Denies pain to ankle or achilles. Past Medical History Reviewed: Historical Data, Nursing Documentation, Vital Signs Vital Signs: Last Vital Signs Temp 98.3 F 11/29/18 09:28 Pulse 84 11/29/18 09:28 Resp 18 11/29/18 09:28 BP 95/66 L 11/29/18 09:28 Pulse Ox 99 11/29/18 09:28 - Medical History PMH: Anemia, Asthma Denies: Kidney Stones, Chronic Kidney Disease - Surgical History Surgical History: (2008 because of nuchal cord. ) - Family History Family History: States: Unknown Family Hx, Diabetes (Grandmother ) - Social History Current smoker - smoking cessation education provided: No - Immunization History Hx Tetanus Toxoid Vaccination: No Hx Influenza Vaccination: Yes (05/2015) Hx Pneumococcal Vaccination: No - Home Medications Home Medications: Ambulatory Orders Medication Instructions Recorded Ciprofloxacin [Cipro] 500 mg PO BID #14 tab 03/13/17 Naproxen [Naprosyn] 500 mg PO BID PRN 03/13/17 RX: Cyclobenzaprine HCl 10 mg PO HS PRN 03/13/17 Polyethylene Glycol 3350 [Miralax] 17 g PO QAM PRN #7 pkg 05/03/18 Ondansetron ODT [Zofran ODT] 4 mg PO Q8 PRN #10 odt 06/16/18 RX: Ibuprofen [Motrin Tab] 600 mg PO Q6 PRN #15 tab 11/29/18 - Allergies Allergies/Adverse Reactions: Allergies Allergy/AdvReac Type Severity Reaction Status Date / Time Penicillins Allergy RASH Verified 06/16/18 13:12 shellfish derived Allergy ANAPHYLAXIS Verified 06/16/18 13:12 Review of Systems Constitutional: Negative for: Fever Cardiovascular: Negative for: Chest Pain, Palpitations, Orthopnea Respiratory: Negative for: Cough, Shortness of Breath Gastrointestinal: Negative for: Nausea Genitourinary Female: Negative for: Dysuria Musculoskeletal: Positive for: Leg Pain, Foot Pain. Negative for: Neck Pain, Shoulder Pain, Arm Pain Skin: Negative for: Rash Neurological: Positive for: Numbness (paresthesis). Negative for: Headache Physical Exam - Reviewed Nursing Documentation Reviewed: Yes Vital Signs Reviewed: Yes - Physical Exam Appears: Positive for: Well, Non-toxic, No Acute Distress Head Exam: Positive for: ATRAUMATIC, NORMAL INSPECTION, NORMOCEPHALIC Skin: Positive for: Normal Color, Warm, DRY Eye Exam: Positive for: EOMI, Normal appearance, PERRL ENT: Positive for: Normal ENT Inspection Neck: Positive for: Normal, Painless ROM Cardiovascular/Chest: Positive for: Regular Rate, Rhythm Respiratory: Positive for: CNT, Normal Breath Sounds Pulses-Dorsalis Pedis (R): 3+/4+ Extremity: Positive for: Tenderness (R calf), Calf Tenderness, Other (limited active ROM plantarflexion). Negative for: Deformity, Swelling Neurologic/Psych: Positive for: Alert, Oriented - Laboratory Results Result Diagrams: 11/29/18 10:35 11/29/18 10:35 - ECG O2 Sat by Pulse Oximetry: 99 Medical Decision Making Medical Decision Making: workup for RLE injury r/o muscle tear, r/o nerve injury, r/o compartment syndrome (less likely given calf supple, normal pulses, symptoms ongoing >5 days) US duplex negative for clot labs reviewed and unremarkable MRI recommended by podiatry r/o gastroc tear MRI report reviewed and podiatry placed in splint with intact neurovascular status afterwards, followup w clinic Disposition - Clinical Impression Clinical Impression: Leg strain - Patient ED Disposition Is Patient to be Admitted: No Counseled Patient/Family Regarding: Studies Performed, Diagnosis, Need For Followup, Rx Given - Disposition Referrals: Podiatry Clinic [Outside] Delvis Barron MD [Staff Provider] - Disposition: Routine/Home Disposition Time: 16:05 Condition: STABLE Additional Instructions: Followup with podiatry/orthopedics for further testing. Return to ER for any new or worsening symptoms. Prescriptions: RX: Ibuprofen [Motrin Tab] 600 mg PO Q6 PRN #15 tab PRN Reason: Pain, Moderate (4-7) Instructions: Muscle Strain, Sprain (DC) Forms: [employer] [facility] (Sinhala), [facility] School/Work Excuse
--- NOTE | 2018-11-29 15:54 | MRI ---
MRI right calf HISTORY: Calf pain. Comparison: None. Technique: Multi-echo multiplanar sequences were performed through the right calf without the use of intravenous contrast. Findings: At the site of the external marker, there appears to be some mild increased signal seen within the posterior aspect of the medial and lateral heads of the right gastrocnemius muscles as well as within the posterior midline soleus musculature suggestive for possible low-grade muscle strains and/or mild myositis versus failure of fat suppression/technical artifact. Clinical correlation. Visualized osseous structures are preserved. Correlation with ankle MRI may be helpful if symptoms persist. Impression: At the site of the external marker, there appears to be some mild increased signal seen within the posterior aspect of the medial and lateral heads of the right gastrocnemius muscles as well as within the posterior midline soleus musculature suggestive for possible low-grade muscle strains and/or mild myositis versus failure of fat suppression/technical artifact. Clinical correlation. Visualized osseous structures are preserved. Correlation with ankle MRI may be helpful if symptoms persist.
[2018-11-29 17:29] VITALS: BP 105/68; PULSE 78
[2018-12-02 15:30] VITALS: O2SAT 99
== END 2018-11-29 16:06 | disposition home or self-care (01) ==
LOC: H.ER 09:10
DX: S86.111A Strain of other muscle(s) and tendon(s) of posterior muscle group at lower leg level, right leg, initial encounter (principal); X50.9XXA Other and unspecified overexertion or strenuous movements or postures, initial encounter; Y92.89 Other specified places as the place of occurrence of the external cause; D64.9 Anemia, unspecified; Z88.0 Allergy status to penicillin